=== PATIENT | female | born 1990 | race Caucasian/White ===

== ENCOUNTER 2017-02-09 11:08 | Emergency (ER) | payer MEDICAID ==
[2017-02-09] MEDS ORDERED: Ketorolac 60 MG/2 ML SDV IM ONE (11:28)
[2017-02-09 11:32] VITALS: BP 124/79
--- NOTE | 2017-02-09 11:55 | EDM.PDOC ---
ED HPI GENERAL MEDICAL PROBLEM - General Chief Complaint: Upper Extremity Injury/Pain Stated Complaint: Right shoulder and rib pain; fall Time Seen by Provider: 02/09/17 11:19 Source of Information: Reports: Patient, RN, RN Notes Reviewed History Limitations: Reports: No Limitations - History of Present Illness INITIAL COMMENTS - FREE TEXT/NARRATIVE: Patient presents to the ED at [facility] complaining of right shoulder and rib pain s/p fall last evening. Patient states she slipped and fell down approximately 6 steps. No previous injury or trauma. No previous right shoulder surgeries. Patient denies any numbness,tingling, or paresthesia to any extremity. Patient denies any head trauma. No LOC. Onset Date: 02/08/17 Duration: Constant, Getting Worse Location: Reports: Upper Extremity, Right Quality: Reports: Stabbing, Throbbing Severity: Severe Improves with: Reports: Rest Worsens with: Reports: Movement Context: Reports: Trauma Associated Symptoms: Reports: No Other Symptoms Right Shoulder Pain Score (Numeric/FACES): 10 - Related Data Allergies Allergy/AdvReac Type Severity Reaction Status Date / Time pertussis vaccine,fluid Allergy Cannot Verified 02/09/17 11:24 [Pertussis Vaccine,Fluid] Remember Home Meds: Home Meds . [No Known Home Meds] 02/09/17 [History] Past Medical History - Past Health History Medical/Surgical History: Denies Medical/Surgical History Psychiatric History: Reports: Anxiety, Depression Social & Family History - Tobacco Use Smoking Status *Q: Current Every Day Smoker Years of Tobacco use: 18 Packs/Tins Daily: 1 - Alcohol Use Days Per Week of Alcohol Use: 0 - Recreational Drug Use Recreational Drug Use: No Review of Systems - Review of Systems Review Of Systems: See Below Constitutional: Denies: Chills, Fever Respiratory: Denies: Shortness of Breath, Cough Cardiovascular: Reports: Other (right side rib pain). Denies: Chest Pain, Palpitations Musculoskeletal: Reports: Shoulder Pain, Back Pain (right rib pain), Muscle Pain , Muscle Stiffness Skin: Reports: No Symptoms Neurological: Reports: No Symptoms. Denies: Dizziness, Headache, Numbness, Paresthesia, Tingling ED EXAM, GENERAL - Physical Exam Exam: See Below Exam Limited By: No Limitations General Appearance: Alert, No Apparent Distress Eye Exam: Bilateral Eye: EOMI, Normal Inspection, PERRL Head: Atraumatic, Normocephalic Neck: Normal Inspection, Supple Respiratory/Chest: No Respiratory Distress, Lungs Clear, Normal Breath Sounds Cardiovascular: Regular Rate, Rhythm Peripheral Pulses: 2+: Radial (L), Radial (R) Extremities: Normal Inspection, Limited Range of Motion Neurological: Alert, Oriented Skin Exam: Warm, Dry, Intact, Normal Color, No Rash Course - Vital Signs Last Recorded V/S: Last Vital Signs Temp 37.3 C 02/09/17 11:15 Pulse 103 H 02/09/17 11:15 Resp 20 02/09/17 11:15 BP 124/79 02/09/17 11:15 Pulse Ox - Orders/Labs/Meds Orders: Active Orders 24 hr Category Date Time Status Ribs 2V w Chest Rt [CR] Stat Exams 02/09/17 11:26 Taken Shoulder Comp Rt [CR] Stat Exams 02/09/17 11:25 Taken CARBOXY-THC BY GC/MS Stat Lab 02/09/17 11:40 Received Labs: Laboratory Tests 02/09/17 02/09/17 Range/Units 11:40 11:40 Urine HCG, Qual Negative (NEGATIVE) Urine Opiates Screen Negative (NEGATIVE) Ur Buprenorphine Scrn Negative (NEGATIVE) Ur Oxycodone Screen Negative (NEGATIVE) Urine Methadone Screen Negative (NEGATIVE) Ur Barbiturates Screen Negative (NEGATIVE) Ur Tricyclics Screen Negative (NEGATIVE) Ur Amphetamine Screen Negative (NEGATIVE) U Methamphetamines Scrn Negative (NEGATIVE) Urine MDMA Screen Negative (NEGATIVE) U Benzodiazepines Scrn Negative (NEGATIVE) U Cocaine Metab Screen Negative (NEGATIVE) U Marijuana (THC) Screen Positive H (NEGATIVE) Meds: Medications Discontinued Medications Generic Name Dose Route Start Last Admin Trade Name Freq PRN Reason Stop Dose Admin Ketorolac Tromethamine 60 mg 02/09/17 11:28 02/09/17 11:44 Toradol IM 02/09/17 11:29 60 mg ONETIME ONE Administration Orphenadrine Citrate 60 mg 02/09/17 11:27 02/09/17 11:44 Norflex IM 02/09/17 11:28 60 mg Q12H ONE Administration - Radiology Interpretation Free Text/Narrative:: Rib xray and Right shoulder xray normal; no fractures or dislocations - see scanned report in EMR Departure - Departure Time of Disposition: 12:41 Disposition: Home, Self-Care 01 Condition: good Clinical Impression: Contusion of rib on right side Qualifiers: Encounter type: initial encounter Qualified Code(s): S20.211A - Contusion of right front wall of thorax, initial encounter Shoulder injury Qualifiers: Encounter type: initial encounter Laterality: right Qualified Code(s): S49.91XA - Unspecified injury of right shoulder and upper arm, initial encounter Fall Qualifiers: Encounter type: initial encounter Qualified Code(s): W19.XXXA - Unspecified fall, initial encounter - Discharge Information Instructions: Shoulder Pain, Shoulder Sprain, Chest Contusion Referrals: Sue De Leon DO [Primary Care Provider] - Forms: ED Department Discharge Additional Instructions: 1. Stay well hydrated and rest 2. Alternate heat/ice to shoulder and ribs 3. May alternate Tylenol/Advil for any pain 4. May use right arm/shoulder as usual as tolerated 5. See your Primary as symptoms warrant - Problem List Review Problem List Initiated/Reviewed/Updated: Yes - My Orders Last 24 Hours: My Active Orders 02/09/17 11:25 Shoulder Comp Rt [CR] Stat 02/09/17 11:26 Ribs 2V w Chest Rt [CR] Stat 02/09/17 11:40 CARBOXY-THC BY GC/MS Stat - Assessment/Plan Last 24 Hours: My Active Orders 02/09/17 11:25 Shoulder Comp Rt [CR] Stat 02/09/17 11:26 Ribs 2V w Chest Rt [CR] Stat 02/09/17 11:40 CARBOXY-THC BY GC/MS Stat
== END 2017-02-09 12:55 | disposition home or self-care (01) ==
LOC: VM.ED 11:08
DX: S20.211A Contusion of right front wall of thorax, initial encounter (principal); S49.91XA Unspecified injury of right shoulder and upper arm, initial encounter; F17.210 Nicotine dependence, cigarettes, uncomplicated; F41.9 Anxiety disorder, unspecified; F32.9 Major depressive disorder, single episode, unspecified; Z88.7 Allergy status to serum and vaccine; W10.9XXA Fall (on) (from) unspecified stairs and steps, initial encounter
CPT/HCPCS: 71101; 73030; 80305; 80349; 81025; 96372; 99283; J1885; J2360

== ENCOUNTER 2017-11-03 15:52 | Emergency (ER) | payer MEDICAID ==
--- NOTE | 2017-11-03 16:35 | EDM.PDOC ---
ED HPI GENERAL MEDICAL PROBLEM - General Chief Complaint: Allergic Reaction Stated Complaint: ALLERGIC TO PERTUSSIS Time Seen by Provider: 11/03/17 16:00 Source of Information: Reports: Patient History Limitations: Reports: No Limitations - History of Present Illness INITIAL COMMENTS - FREE TEXT/NARRATIVE: Patient comes in to the emergency department today due to allergic reaction related to her Tdap injection her left arm. Patient states that she is allergic to pertussis vaccine and somehow was mistaken was still given yesterday with the pertussis component in it. Patient states she had an allergic reaction almost 30 minutes after. She had redness at the site and which she characterizes as hives. She took Benadryl which is managing her symptoms throughout the night and this morning. However this afternoon the pain in that left arm has become to significant the point that she does not want to touch or move it. It red-hot and tender over the dye injection site she currently does not have any hives but states that she took 50 mg of Benadryl approximately 35 minutes prior to arrival because of the discomfort and not related to hives. She denies being short of breath, chest pain, dizziness, nausea, blurred vision , or numbness and tingling. He also states she has been just started on gabapentin-back pain and buspar-anxiety. Onset: Sudden Onset Date: 11/02/17 Treatments STEM ASSEMBLER: Reports: Other (see below) Other Treatments STEM ASSEMBLER: bendaryl Left Arm Pain Score (Numeric/FACES): 10 - Related Data Allergies Allergy/AdvReac Type Severity Reaction Status Date / Time pertussis vaccine,fluid Allergy Hives Verified 11/03/17 16:06 [Pertussis Vaccine,Fluid] Home Meds: Home Meds Gabapentin [Neurontin] 300 mg PO BID 11/03/17 [History] busPIRone HCl [Buspirone HCl] 7.5 mg PO BID 11/03/17 [History] Past Medical History - Past Health History Medical/Surgical History: Denies Medical/Surgical History Musculoskeletal History: Reports: Back Pain, Chronic Psychiatric History: Reports: Anxiety, Depression, Other (See Below) Other Psychiatric History: Bipolar type 2, Manic Depressive. - Past Surgical History Other Musculoskeletal Surgeries/Procedures:: Fell down a flight of stairs when she was in 7th grade. Social & Family History - Tobacco Use Smoking Status *Q: Current Every Day Smoker Years of Tobacco use: 19 Packs/Tins Daily: 0.5 - Alcohol Use Days Per Week of Alcohol Use: 0 - Recreational Drug Use Recreational Drug Use: Yes Drug Use in Last 12 Months: Yes Recreational Drug Type: Reports: Marijuana/Hashish ED ROS ALLERGIC REACTION - Review of Systems Review Of Systems: See Below Constitutional: Reports: No Symptoms HEENT: Reports: No Symptoms Respiratory: Reports: No Symptoms Cardiovascular: Reports: No Symptoms Endocrine: Reports: No Symptoms GI/Abdominal: Reports: No Symptoms : Reports: No Symptoms Musculoskeletal: Reports: No Symptoms Skin: Reports: Rash Neurological: Reports: No Symptoms Psychiatric: Reports: Anxiety, Depression Hematologic/Lymphatic: Reports: No Symptoms Immunologic: Reports: No Symptoms ED EXAM GENERAL NO PERIP PULSE - Physical Exam Exam: See Below Exam Limited By: No Limitations General Appearance: Alert, WD/WN, No Apparent Distress Nose: Normal Inspection, Normal Mucosa Throat/Mouth: Normal Inspection, Normal Lips Neck: Normal Inspection, Supple, Non-Tender, Full Range of Motion Respiratory/Chest: No Respiratory Distress, Lungs Clear, Normal Breath Sounds, No Accessory Muscle Use, Chest Non-Tender Cardiovascular: Normal Peripheral Pulses, Regular Rate, Rhythm, No Edema, No Gallop Skin Exam: Warm, Dry, Intact, Other (left arm: redness, warmth, tenderness at the site of injection. tenderness up through upper arm. No hardened area. No uticaria noted. ROM intact. CMS intact ) Course - Vital Signs Last Recorded V/S: Last Vital Signs Temp 37.3 C 11/03/17 16:00 Pulse 81 11/03/17 16:00 Resp 20 11/03/17 16:00 BP 119/61 11/03/17 16:00 Pulse Ox 96 11/03/17 16:00 - Orders/Labs/Meds Labs: Laboratory Tests 11/03/17 Range/Units 16:15 Creatine Kinase 50 (26-192) U/L Meds: Medications Discontinued Medications Generic Name Dose Route Start Last Admin Trade Name Freq PRN Reason Stop Dose Admin Ondansetron HCl 4 mg 11/03/17 17:12 Zofran Odt PO 11/03/17 17:13 ONETIME ONE Departure - Departure Time of Disposition: 16:30 Disposition: Home, Self-Care 01 Condition: Good Clinical Impression: Allergic reaction Qualifiers: Encounter type: initial encounter Qualified Code(s): T78.40XA - Allergy, unspecified, initial encounter - Discharge Information Instructions: Hives Referrals: Nasima Lees PA-C [Primary Care Provider] - Forms: ED Department Discharge Additional Instructions: 1. Take [id number] Benadryl as needed for hives 2. Increase water intake while taking the Benadryl 3. Rest 4. Follow up with PCP on Sunday or Sunday if not feeling better 5. Ice the area 3 times a day at 20 minute intervals 6. Can take ibuprofen and Tylenol for management of pain and discomfort 7. Activity and diet as tolerated - Assessment/Plan Plan: 1. Ice to the area 2. Lab completed in ER today to look for muscle breakdown. 3. Encourage pt to continue to Benadryl if hive to appear agin 4. Pt advised to ice the are 3-4 times a day 3. Consult completed with David who agree with above plan of care.
[2017-11-03] MEDS ORDERED: Ondansetron 4 MG Tab.DIS PO ONE (17:12)
== END 2017-11-03 17:10 | disposition home or self-care (01) ==
LOC: VM.ED 15:52
DX: L50.9 Urticaria, unspecified (principal); T50.A15A Adverse effect of pertussis vaccine, including combinations with a pertussis component, initial encounter; F31.81 Bipolar II disorder; F17.210 Nicotine dependence, cigarettes, uncomplicated; Z79.899 Other long term (current) drug therapy
CPT/HCPCS: 36415; 82550; 99283